=== PATIENT | female | born 1970 | race American Indian/Alaskan Native ===

== ENCOUNTER 2018-05-08 06:43 | Outpatient (CLI) | payer MEDICAID | END 2018-05-08 06:44 | disposition home or self-care (01) | LOC: CARDIO 06:43 | DX: E66.09 Other obesity due to excess calories (principal); R94.31 Abnormal electrocardiogram [ECG] [EKG]; E66.9 Obesity, unspecified; F32.9 Major depressive disorder, single episode, unspecified; I10 Essential (primary) hypertension ==